=== PATIENT | male | born 1960 | race Hispanic/Latino ===

== ENCOUNTER 2022-10-03 14:13 | Emergency (ER) | payer SELFPAY ==
[~2022-10-03] VITALS: Ht 167.6 cm; Wt 81.8 kg
[2022-10-03 15:14] LABS: HEMATOCRIT 41.7 % (39.0-50.0); HEMOGLOBIN 14.6 g/dl (14.0-18.0); IMMATURE GRANULOCYTES 0.1 % (0.0-5.0); MEAN CELL VOLUME 96.3 fL CALC (80.0-100.0); MEAN CORPUSCULAR HGB 33.7 pG CALC (26.0-32.0); NEUT# 3.2 thou/uL (1.82-7.42); RED BLOOD COUNT 4.33 mill/uL (4.70-6.10); RED CELL DISTRI WIDTH 12.8 % (11.5-15.5)
[2022-10-03 15:24] LABS: ALBUMIN 4.5 g/dL (3.2-5.0); ALKALINE PHOSPHATASE 88 u/l (38-126); ANION GAP 18 (6-22 (CALC)); BILIRUBIN, TOTAL 0.7 mg/dL (0.0-1.4); BUN 5 mg/dL (8-23); BUN/CREATININE RATIO 8 (12-20 (CALC)); CARBON DIOXIDE 26 mmol/l (22-30); CHLORIDE 95 mmol/l (95-108); CREATININE 0.7 mg/dL (0.7-1.3); GFR FOR AFR.AMER. > 60 ML/MIN (>=60 (CALC)); GFR OTHER RACES > 60 ML/MIN (>=60 (CALC)); POTASSIUM 4.3 mmol/l (3.5-5.1); SGOT/AST 58 u/l (19-48); SODIUM 134 mmol/l (137-146); TOTAL PROTEIN 8.9 g/dL (6.3-8.2)
[2022-10-03 15:34] LABS: ETHYL ALCOHOL 365 mg/dl (0-30)
[2022-10-04] VITALS (8 sets, daily range): BP systolic 88–122; BP diastolic 64–70
== END 2022-10-04 03:28 | disposition home or self-care (01) | DRG 897 ==
LOC: ED 14:13
PROVIDERS: Nurse Practitioner
DX: F10.129 Alcohol abuse with intoxication, unspecified (principal); Y90.8 Blood alcohol level of 240 mg/100 ml or more